=== PATIENT | male | born 1955 ===

== ENCOUNTER 2017-08-01 05:34 | Day surgery (SDC) | payer OTHER | END 2017-08-01 10:40 | disposition home or self-care (01) | LOC: AMB-ENDOS 05:34 | DX: K86.2 Cyst of pancreas (principal); R17 Unspecified jaundice ==

== ENCOUNTER 2017-09-14 06:57 | Inpatient (IN) | payer OTHER ==
[~2017-09-14] VITALS: Ht 167.6 cm; Wt 45.4 kg
== END 2017-09-17 10:42 | disposition expired | DRG 871 ==
LOC: ER 06:57 → MEDJ 16:41
PROC: BW21Y0Z Computerized Tomography (CT Scan) of Abdomen and Pelvis using Other Contrast, Unenhanced and Enhanced (ICD-10-PCS; principal; 2017-09-14)
PROC: B54DZZZ Ultrasonography of Bilateral Lower Extremity Veins (ICD-10-PCS; 2017-09-15)
DX: A41.9 Sepsis, unspecified organism (principal); K83.1 Obstruction of bile duct; C25.0 Malignant neoplasm of head of pancreas; K83.0 Cholangitis; R64 Cachexia; E87.1 Hypo-osmolality and hyponatremia; C78.7 Secondary malignant neoplasm of liver and intrahepatic bile duct; N39.0 Urinary tract infection, site not specified; B37.89 Other sites of candidiasis; J90 Pleural effusion, not elsewhere classified; R65.20 Severe sepsis without septic shock; E86.0 Dehydration; Z66 Do not resuscitate; B95.2 Enterococcus as the cause of diseases classified elsewhere; B96.1 Klebsiella pneumoniae [K. pneumoniae] as the cause of diseases classified elsewhere